=== PATIENT | male | born 1955 | race Caucasian/White ===

== ENCOUNTER 2021-12-13 09:23 | Inpatient (IN) | payer OTHER ==
[~2021-12-13] VITALS: Ht 195.6 cm; Wt 101.0 kg
[~2021-12-13 09:23] MED LIST: BACT800T5 PO; CLOP75TA2 PO; DULCOLAX; HYDR1CRE TOP; PERC5TAB8; PRED20TA PO; TRIA1CR80 TOP
[2021-12-13] MEDS ORDERED: DOXEPIN 25 MG CAP PO ONE (10:50)
[2021-12-13 11:18] LABS: BASO # 0.1 10^3/uL (0.0-0.2); BASO % 0.9 % (0.0-1.0); EOS # 0.3 10^3/uL (0.0-0.5); EOS % 2.1 % (0.0-3.0); HEMATOCRIT 47.4 % (42.0-52.0); LYMPH # 2.3 10^3/uL (1.5-5.0); LYMPH % 16.1 % (24.0-44.0); MEAN CORPUSCULAR HEMOGLOBIN 29.9 pg (27.0-33.0); MEAN CORPUSCULAR HGB CONC 33.8 g/dl (32.0-36.5); MEAN CORPUSCULAR VOLUME 88.4 fl (80.0-96.0); MONO # 1.2 10^3/uL (0.0-0.8); MONO % 8.3 % (2.0-8.0); NEUTROPHILS # 10.1 10^3/uL (1.5-8.5); NEUTROPHILS % 72.1 % (36.0-66.0); PLATELET COUNT, AUTOMATED 378 10^3/uL (150-450); RED BLOOD COUNT 5.36 10^6/uL (4.30-6.10); WHITE BLOOD COUNT 14.1 10^3/uL (4.0-10.0)
[2021-12-13 11:46] LABS: ALBUMIN 3.5 GM/DL (3.2-5.2); ALT/SGPT 21 U/L (12-78); BILIRUBIN,DIRECT 0.1 MG/DL (0.0-0.2); BILIRUBIN,TOTAL 0.4 MG/DL (0.2-1.0); BLOOD UREA NITROGEN 14 MG/DL (7-18); C REACTIVE PROTEIN QUANTITATIV 2.08 MG/DL (0.00-0.30); CALCIUM LEVEL 9.3 MG/DL (8.8-10.2); CARBON DIOXIDE LEVEL 27 MEQ/L (21-32); CHLORIDE LEVEL 108 MEQ/L (98-107); GLOMERULAR FILTRATION RATE > 60.0 (>49); GLUCOSE, FASTING 118 MG/DL (70-100); POTASSIUM SERUM 4.4 MEQ/L (3.5-5.1); SODIUM LEVEL 138 MEQ/L (136-145); TOTAL PROTEIN 7.5 GM/DL (6.4-8.2)
[2021-12-13 11:53] LABS: ERYTHROCYTE SEDIMENTATION RATE 37 mm/hr (0-20)
[2021-12-13 12:07] LABS: RSV AMPLIFICATION NEGATIVE (NEGATIVE)
[2021-12-13] MEDS ORDERED: MAALOX 30 ML SUSP *UDC PO PRN (13:20)
[2021-12-13] MEDS ORDERED: MOM 30ML SUSPENSION UDC PO PRN (13:20)
[2021-12-13] MEDS ORDERED: ACETAMINOPHEN TAB 650MG DOSE (2X325MG) PO PRN (13:20)
[2021-12-13] MEDS: PIPERACILLIN/TAZOBACTAM SOD 3.375 GM in D5W MINI-BAG PLUS 50 ML IV SCH ×2 (14:09→21:06)
[2021-12-13] MEDS ORDERED: VANCOMYCIN HCL 1,000 MG, VIAL MATE ADAPTER 1 EACH in NS 250 ML IV ONE ×2 (15:00→16:00)
[2021-12-13] MEDS ORDERED: diphenhydrAMINE CREAM 30GM TOP PRN (15:55)
[2021-12-13] MEDS ORDERED: HOME MED LIST COMPLETE! XX SCH (16:00)
[2021-12-13 20:28] VITALS: BP 146/78
[2021-12-13] MEDS ORDERED: CARVedilol 6.25 MG TAB PO SCH (21:00)
[2021-12-13] MEDS: DOCUSATE SODIUM 100MG CAPSULE PO SCH (21:06)
[2021-12-14] VITALS (8 sets, daily range): BP systolic 104–129; BP diastolic 53–72
[2021-12-14] MEDS: PIPERACILLIN/TAZOBACTAM SOD 3.375 GM in D5W MINI-BAG PLUS 50 ML IV SCH ×3 (02:00→08:17)
[2021-12-14] MEDS ORDERED: VANCOMYCIN HCL 1,000 MG, VIAL MATE ADAPTER 1 EACH in NS 250 ML IV SCH (02:00)
[2021-12-14 07:01] LABS: BASO # 0.1 10^3/uL (0.0-0.2); EOS # 0.5 10^3/uL (0.0-0.5); EOS % 4.3 % (0.0-3.0); HEMATOCRIT 42.5 % (42.0-52.0); HEMOGLOBIN 14.4 g/dl (13.5-17.5); LYMPH # 2.2 10^3/uL (1.5-5.0); LYMPH % 20.6 % (24.0-44.0); MEAN CORPUSCULAR HEMOGLOBIN 29.9 pg (27.0-33.0); MEAN CORPUSCULAR HGB CONC 33.9 g/dl (32.0-36.5); MEAN CORPUSCULAR VOLUME 88.2 fl (80.0-96.0); MONO # 1.1 10^3/uL (0.0-0.8); MONO % 10.5 % (2.0-8.0); NEUTROPHILS # 6.7 10^3/uL (1.5-8.5); NEUTROPHILS % 63.4 % (36.0-66.0); PLATELET COUNT, AUTOMATED 333 10^3/uL (150-450); RED BLOOD COUNT 4.82 10^6/uL (4.30-6.10); WHITE BLOOD COUNT 10.5 10^3/uL (4.0-10.0)
[2021-12-14 07:44] LABS: ALBUMIN 2.9 GM/DL (3.2-5.2); ALT/SGPT 17 U/L (12-78); BILIRUBIN,TOTAL 0.6 MG/DL (0.2-1.0); BLOOD UREA NITROGEN 13 MG/DL (7-18); CALCIUM LEVEL 9.5 MG/DL (8.8-10.2); CARBON DIOXIDE LEVEL 28 MEQ/L (21-32); CHLORIDE LEVEL 109 MEQ/L (98-107); CREATININE FOR GFR 1.02 MG/DL (0.70-1.30); GLOMERULAR FILTRATION RATE > 60.0 (>49); GLUCOSE, FASTING 144 MG/DL (70-100); MAGNESIUM LEVEL 2.3 MG/DL (1.8-2.4); POTASSIUM SERUM 4.8 MEQ/L (3.5-5.1); SODIUM LEVEL 142 MEQ/L (136-145); TOTAL PROTEIN 6.5 GM/DL (6.4-8.2)
[2021-12-14] MEDS: ENOXAPARIN 40MG/0.4ML SYRINGE (J1650 PER 10MG) SC SCH (08:17)
[2021-12-14] MEDS: CLOPIDOGREL 75 MG TAB PO SCH (08:18)
[2021-12-14] MEDS: DOCUSATE SODIUM 100MG CAPSULE PO SCH ×2 (08:18→20:20)
[2021-12-14] MEDS ORDERED: CARVedilol 3.125 MG TAB PO SCH (09:00)
[2021-12-14] MEDS: AUGMENTIN 875 MG TAB PO SCH ×2 (12:04→20:20)
[2021-12-14] MEDS: DOXYCYCLINE HYCLATE 100MG TABLET PO SCH ×2 (12:04→20:20)
[2021-12-14] MEDS ORDERED: NICOTINE 14 MG/24 HR TRANSDERMAL TD PRN (18:30)
[2021-12-14] MEDS: diphenhydrAMINE 25MG CAP PO PRN (20:20)
[2021-12-15] MEDS: diphenhydrAMINE 25MG CAP PO PRN (04:11)
[2021-12-15 06:00] VITALS: BP 114/69
[2021-12-15 06:33] LABS: BASO # 0.1 10^3/uL (0.0-0.2); BASO % 1.8 % (0.0-1.0); EOS # 0.5 10^3/uL (0.0-0.5); EOS % 6.8 % (0.0-3.0); HEMATOCRIT 43.6 % (42.0-52.0); HEMOGLOBIN 14.4 g/dl (13.5-17.5); LYMPH # 2.4 10^3/uL (1.5-5.0); LYMPH % 34.1 % (24.0-44.0); MEAN CORPUSCULAR HEMOGLOBIN 29.4 pg (27.0-33.0); MONO # 0.9 10^3/uL (0.0-0.8); MONO % 12.4 % (2.0-8.0); NEUTROPHILS # 3.1 10^3/uL (1.5-8.5); NEUTROPHILS % 44.6 % (36.0-66.0); PLATELET COUNT, AUTOMATED 344 10^3/uL (150-450)
[2021-12-15 07:03] LABS: ALBUMIN 2.8 GM/DL (3.2-5.2); ALT/SGPT 16 U/L (12-78); BILIRUBIN,TOTAL 0.3 MG/DL (0.2-1.0); BLOOD UREA NITROGEN 14 MG/DL (7-18); C REACTIVE PROTEIN QUANTITATIV 2.43 MG/DL (0.00-0.30); CALCIUM LEVEL 8.8 MG/DL (8.8-10.2); CARBON DIOXIDE LEVEL 26 MEQ/L (21-32); CHLORIDE LEVEL 109 MEQ/L (98-107); CREATININE FOR GFR 0.94 MG/DL (0.70-1.30); GLOMERULAR FILTRATION RATE > 60.0 (>49); GLUCOSE, FASTING 127 MG/DL (70-100); MAGNESIUM LEVEL 2.1 MG/DL (1.8-2.4); POTASSIUM SERUM 4.1 MEQ/L (3.5-5.1); SODIUM LEVEL 140 MEQ/L (136-145); TOTAL PROTEIN 6.9 GM/DL (6.4-8.2)
[2021-12-15 08:00] VITALS: BP 122/69
[2021-12-15] MEDS: DOXYCYCLINE HYCLATE 100MG TABLET PO SCH (08:09)
[2021-12-15] MEDS: AUGMENTIN 875 MG TAB PO SCH (08:09)
[2021-12-15] MEDS: CLOPIDOGREL 75 MG TAB PO SCH (08:09)
[2021-12-15] MEDS: DOCUSATE SODIUM 100MG CAPSULE PO SCH (08:10)
[2021-12-15] MEDS ORDERED: OMEPRAZOLE 20MG CAP PO SCH (09:00)
[2021-12-15] MEDS: ENOXAPARIN 40MG/0.4ML SYRINGE (J1650 PER 10MG) SC SCH (09:31)
[2021-12-15] MEDS ORDERED: CLOP75TA2 PO (09:35)
[2021-12-15] MEDS ORDERED: AMOX875T2 PO (09:38)
[2021-12-15] MEDS ORDERED: DOXY-350 PO (09:38)
[2021-12-15 19:08] LABS: ANA (HEP2) Negative (.)
== END 2021-12-15 11:45 | disposition home or self-care (01) | DRG 756 ==
LOC: M ED 09:23 → M ED INP 13:16 → M PCU 20:30 → M MS5PR 12-14 13:53
PROVIDERS: ADMIT Internal Medicine; ATTEND Internal Medicine
DX: R45.851 Suicidal ideations (principal); I10 Essential (primary) hypertension; I73.9 Peripheral vascular disease, unspecified; Z98.62 Peripheral vascular angioplasty status; Z90.49 Acquired absence of other specified parts of digestive tract; Z62.810 Personal history of physical and sexual abuse in childhood; F43.9 Reaction to severe stress, unspecified; F43.10 Post-traumatic stress disorder, unspecified; F42.4 Excoriation (skin-picking) disorder

== ENCOUNTER → 2022-07-03 | Outpatient (REF) | payer OTHER, MEDICAID ==
[~2022-07-03] MED LIST changes: +AMOX875T2 PO; +DOXY-444 PO
[2022-07-03 12:37] LABS: ALBUMIN 3.9 G/DL (3.2-5.2); ALKALINE PHOSPHATASE 76 U/L (46-116); ALT/SGPT 17 U/L (7.0-40); AST/SGOT 15 U/L (<34); BILIRUBIN,TOTAL 0.5 MG/DL (0.3-1.2); BLOOD UREA NITROGEN 16 MG/DL (9-23); CALCIUM LEVEL 9.6 MG/DL (8.3-10.6); CARBON DIOXIDE LEVEL 27 MMOL/L (20-31); CHLORIDE LEVEL 104 MMOL/L (98-107); CHOLESTEROL LEVEL 131 MG/DL (<200); CHOLESTEROL RISK RATIO 4.98 (<5); CREATININE FOR GFR 0.93 MG/DL (0.70-1.30); GLOMERULAR FILTRATION RATE > 60.0 (>49); GLUCOSE, FASTING 106 MG/DL (74-106); HDL CHOLESTEROL 26.3 MG/DL (>40); LDL CHOLESTEROL 78.1 MG/DL (<100); NON-HDL-C 105 MG/DL; POTASSIUM SERUM 5.2 MMOL/L (3.5-5.1); SODIUM LEVEL 138 MMOL/L (136-145); TOTAL PROTEIN 7.3 G/DL (5.7-8.2); TRIGLYCERIDES LEVEL 133 MG/DL (<150)
[2022-07-03 13:25] LABS: HEMOGLOBIN A1c 6.1 % (4.0-6.0)
== END ==
LOC: M LAB REF 11:24
PROVIDERS: ATTEND Nurse Practitioner Family
DX: R73.03 Prediabetes (principal); Z13.220 Encounter for screening for lipoid disorders

== ENCOUNTER → 2022-11-12 | Outpatient (REF) | payer OTHER, MEDICAID, MEDICARE ==
[2022-11-12 11:28] LABS: ALBUMIN 3.9 G/DL (3.2-5.2); ALKALINE PHOSPHATASE 72 U/L (46-116); ALT/SGPT 26 U/L (7.0-40); AST/SGOT 17 U/L (<34); BILIRUBIN,TOTAL 0.6 MG/DL (0.3-1.2); BLOOD UREA NITROGEN 19 MG/DL (9-23); CALCIUM LEVEL 9.2 MG/DL (8.3-10.6); CARBON DIOXIDE LEVEL 27 MMOL/L (20-31); CHLORIDE LEVEL 105 MMOL/L (98-107); CHOLESTEROL LEVEL 146 MG/DL (<200); CHOLESTEROL RISK RATIO 6.03 (<5); CREATININE FOR GFR 1.08 MG/DL (0.70-1.30); GLOMERULAR FILTRATION RATE > 60.0 (>49); GLUCOSE, FASTING 128 MG/DL (74-106); HDL CHOLESTEROL 24.2 MG/DL (>40); LDL CHOLESTEROL 86.4 MG/DL (<100); NON-HDL-C 121.8 MG/DL; POTASSIUM SERUM 4.8 MMOL/L (3.5-5.1); SODIUM LEVEL 137 MMOL/L (136-145); TOTAL PROTEIN 7.5 G/DL (5.7-8.2); TRIGLYCERIDES LEVEL 177 MG/DL (<150)
[2022-11-12 11:42] LABS: HEMOGLOBIN A1c 6.8 % (4.0-6.0)
== END ==
LOC: M LAB REF 10:27
PROVIDERS: ATTEND Nurse Practitioner Family
DX: R73.03 Prediabetes (principal); R79.89 Other specified abnormal findings of blood chemistry

== ENCOUNTER → 2023-03-27 | Outpatient (REF) | payer MEDICARE, MEDICAID | LOC: M SFHCDERM 16:04 | PROVIDERS: ATTEND Physician Assistant | DX: T07.XXXA Unspecified multiple injuries, initial encounter (principal); R21 Rash and other nonspecific skin eruption ==

== ENCOUNTER 2023-10-30 20:45 | Inpatient (IN) | payer OTHER, MEDICAID ==
[~2023-10-30] VITALS: Ht 195.6 cm; Wt 103.6 kg
[~2023-10-30 20:45] MED LIST changes: +DOXY-440 PO; -DOXY-444 PO
[2023-10-30] MEDS ORDERED: CEPH500C PO (20:54)
[2023-10-30] MEDS ORDERED: METF500T13 PO (20:54)
[2023-10-30 21:45] LABS: BASO # 0.1 10^3/uL (0.0-0.2); BASO % 0.8 % (0.0-1.0); HEMATOCRIT 51.1 % (42.0-52.0); HEMOGLOBIN 17.2 g/dl (13.5-17.5); LYMPH % 8.6 % (24.0-44.0); MEAN CORPUSCULAR HEMOGLOBIN 28.7 pg (27.0-33.0); MEAN CORPUSCULAR HGB CONC 33.7 g/dl (32.0-36.5); MEAN CORPUSCULAR VOLUME 85.2 fl (80.0-96.0); MONO % 8.6 % (2.0-8.0); NEUTROPHILS # 9.2 10^3/uL (1.5-8.5); NEUTROPHILS % 81.6 % (36.0-66.0); PLATELET COUNT, AUTOMATED 221 10^3/uL (150-450); WHITE BLOOD COUNT 11.3 10^3/uL (4.0-10.0)
[2023-10-30 22:00] LABS: INR 1.06; PARTIAL THROMBOPLASTIN TIME 28.4 SECONDS (24.8-34.2); PROTHROMBIN TIME 13.5 SECONDS (12.5-14.5)
[2023-10-30 22:07] LABS: ALBUMIN 2.7 G/DL (3.2-5.2); ALKALINE PHOSPHATASE 96 U/L (46-116); ALT/SGPT 16 U/L (7.0-40); AST/SGOT 17 U/L (<34); BILIRUBIN,DIRECT 0.3 MG/DL (<0.4); BILIRUBIN,TOTAL 0.8 MG/DL (0.3-1.2); BLOOD UREA NITROGEN 21 MG/DL (9-23); CALCIUM LEVEL 8.4 MG/DL (8.3-10.6); CARBON DIOXIDE LEVEL 22 MMOL/L (20-31); CHLORIDE LEVEL 100 MMOL/L (98-107); CREATININE FOR GFR 1.01 MG/DL (0.70-1.30); GLOMERULAR FILTRATION RATE > 60.0 (>49); GLUCOSE, FASTING 339 MG/DL (74-106); POTASSIUM SERUM 4.7 MMOL/L (3.5-5.1); SODIUM LEVEL 131 MMOL/L (136-145)
[2023-10-30] MEDS: NS 1,000 ML IV ONE ×3 (22:40→23:07)
[2023-10-30] MEDS: cefTRIAXone SOD 1 GM in D5W MINI-BAG PLUS 50 ML IV ONE (23:07)
[2023-10-30] MEDS ORDERED: HOME MED LIST COMPLETE! XX SCH (23:35)
[2023-10-31] VITALS (9 sets, daily range): BP systolic 100–143; BP diastolic 58–73; TEMP 97.1–102.5; O2SAT 91–97
[2023-10-31] MEDS ORDERED: GLUCAGON INJ 1MG VIAL SC PRN (01:00)
[2023-10-31] MEDS ORDERED: ALBUTEROL SULFATE 2.5MG/0.5ML INH NEB SOLN NEB PRN (01:00)
[2023-10-31] MEDS ORDERED: GLUCOSE 4 GM CHEW PO PRN (01:00)
[2023-10-31] MEDS ORDERED: DEXTROSE 50% 50ML SYRINGE IV PRN (01:00)
[2023-10-31] MEDS: IPRATROPIUM 0.5MG/ALBUTEROL 2.5MG INH SOL UD 3ML (DUONEB) NEB SCH (02:00)
[2023-10-31] MEDS: HumuLIN R (REGULAR) INSULIN (NovoLIN R) **100U/ML** PER UNIT IV STA (02:33)
[2023-10-31] MEDS: LR 1,000 ML IV SCH (02:33)
[2023-10-31] MEDS: LEVEMIR (INSULIN DETEMIR) 1 UNITS/0.01ML SC SCH ×3 (02:33→20:27)
[2023-10-31] MEDS: HEPARIN SOD (PORCINE) 5000UNITS/ML 1ML VIAL/SYRINGE SC SCH (05:54)
[2023-10-31 07:21] LABS: BLOOD UREA NITROGEN 19 MG/DL (9-23); CARBON DIOXIDE LEVEL 23 MMOL/L (20-31); CHLORIDE LEVEL 103 MMOL/L (98-107); CREATININE FOR GFR 0.86 MG/DL (0.70-1.30); GLOMERULAR FILTRATION RATE > 60.0 (>49); GLUCOSE, FASTING 247 MG/DL (74-106); POTASSIUM SERUM 4.4 MMOL/L (3.5-5.1); SODIUM LEVEL 132 MMOL/L (136-145)
[2023-10-31 07:50] LABS: BASO # 0.1 10^3/uL (0.0-0.2); BASO % 0.8 % (0.0-1.0); EOS # 0.1 10^3/uL (0.0-0.5); EOS % 0.6 % (0.0-3.0); HEMATOCRIT 44.6 % (42.0-52.0); LYMPH # 1.4 10^3/uL (1.5-5.0); LYMPH % 16.2 % (24.0-44.0); MEAN CORPUSCULAR HEMOGLOBIN 29.1 pg (27.0-33.0); MEAN CORPUSCULAR HGB CONC 33.6 g/dl (32.0-36.5); MEAN CORPUSCULAR VOLUME 86.4 fl (80.0-96.0); MONO % 11.1 % (2.0-8.0); NEUTROPHILS # 6.3 10^3/uL (1.5-8.5); PLATELET COUNT, AUTOMATED 209 10^3/uL (150-450); RED BLOOD COUNT 5.16 10^6/uL (4.30-6.10); WHITE BLOOD COUNT 8.8 10^3/uL (4.0-10.0)
[2023-10-31] MEDS: INSULIN LISPRO (NovoLOG) PER UNIT SC SCH ×2 (08:43→20:11)
[2023-10-31] MEDS: TAMSULOSIN 0.4 MG CAP PO SCH (12:58)
[2023-10-31] MEDS: ACETAMINOPHEN TAB 650MG DOSE (2X325MG) PO PRN (15:53)
[2023-10-31] MEDS ORDERED: VANCOMYCIN HCL 1,000 MG, VIAL MATE ADAPTER 1 EACH in D5W 250 ML IV SCH (17:00)
[2023-10-31] MEDS: VANCOMYCIN HCL 1,000 MG, VIAL MATE ADAPTER 1 EACH in D5W 250 ML IV ONE ×2 (17:33→18:38)
[2023-10-31] MEDS: NICOTINE 21MG/24HR 1 EA TRANSDERMAL TD SCH (20:27)
[2023-10-31] MEDS: ENOXAPARIN 40MG/0.4ML SYRINGE (J1650 PER 10MG) SC SCH (20:28)
[2023-10-31] MEDS: cefTRIAXone SOD 1 GM in D5W MINI-BAG PLUS 50 ML IV SCH (23:11)
[2023-11-01] VITALS (8 sets, daily range): BP systolic 125–146; BP diastolic 63–71; TEMP 99.8–101.5; O2SAT 91–96
[2023-11-01] MEDS: VANCOMYCIN HCL 750 MG, VIAL MATE ADAPTER 1 EACH in D5W 250 ML IV SCH ×3 (02:07→15:57)
[2023-11-01] MEDS: VANCOMYCIN HCL 500 MG in D5W MINI-BAG PLUS 100 ML IV SCH (02:07)
[2023-11-01 06:40] LABS: HEMATOCRIT 42.6 % (42.0-52.0); HEMOGLOBIN 14.5 g/dl (13.5-17.5); MEAN CORPUSCULAR HEMOGLOBIN 28.9 pg (27.0-33.0); MEAN CORPUSCULAR VOLUME 84.9 fl (80.0-96.0); PLATELET COUNT, AUTOMATED 188 10^3/uL (150-450); RED BLOOD COUNT 5.02 10^6/uL (4.30-6.10); WHITE BLOOD COUNT 8.9 10^3/uL (4.0-10.0)
[2023-11-01 07:05] LABS: ALBUMIN 2.2 G/DL (3.2-5.2); ALKALINE PHOSPHATASE 104 U/L (46-116); ALT/SGPT 33 U/L (7.0-40); AST/SGOT 38 U/L (<34); BILIRUBIN,TOTAL 0.7 MG/DL (0.3-1.2); BLOOD UREA NITROGEN 13 MG/DL (9-23); CARBON DIOXIDE LEVEL 26 MMOL/L (20-31); CHLORIDE LEVEL 100 MMOL/L (98-107); CREATININE FOR GFR 0.79 MG/DL (0.70-1.30); GLOMERULAR FILTRATION RATE > 60.0 (>49); GLUCOSE, FASTING 235 MG/DL (74-106); POTASSIUM SERUM 3.9 MMOL/L (3.5-5.1); SODIUM LEVEL 131 MMOL/L (136-145); TOTAL PROTEIN 5.7 G/DL (5.7-8.2)
[2023-11-01] MEDS: LEVEMIR (INSULIN DETEMIR) 1 UNITS/0.01ML SC SCH (08:17)
[2023-11-01] MEDS ORDERED: LEVEMIR (INSULIN DETEMIR) 1 UNITS/0.01ML SC SCH (09:00)
[2023-11-01] MEDS ORDERED: cefTRIAXone SOD 2 GM in D5W MINI-BAG PLUS 50 ML IV SCH (23:00)
[2023-11-01] MEDS: cefTRIAXone SOD 2 GM in D5W MINI-BAG PLUS 50 ML IV SCH (23:31)
[2023-11-02] VITALS (8 sets, daily range): BP systolic 118–156; BP diastolic 57–79; TEMP 100–101.6; O2SAT 90–96
[2023-11-02 04:55] LABS: HEMATOCRIT 40.2 % (42.0-52.0); HEMOGLOBIN 13.8 g/dl (13.5-17.5); MEAN CORPUSCULAR HEMOGLOBIN 29.1 pg (27.0-33.0); MEAN CORPUSCULAR HGB CONC 34.3 g/dl (32.0-36.5); MEAN CORPUSCULAR VOLUME 84.8 fl (80.0-96.0); PLATELET COUNT, AUTOMATED 201 10^3/uL (150-450); RED BLOOD COUNT 4.74 10^6/uL (4.30-6.10); WHITE BLOOD COUNT 7.4 10^3/uL (4.0-10.0)
[2023-11-02 05:24] LABS: ALBUMIN 2.1 G/DL (3.2-5.2); ALKALINE PHOSPHATASE 146 U/L (46-116); ALT/SGPT 48 U/L (7.0-40); AST/SGOT 46 U/L (<34); BILIRUBIN,TOTAL 0.6 MG/DL (0.3-1.2); BLOOD UREA NITROGEN 12 MG/DL (9-23); CALCIUM LEVEL 8.1 MG/DL (8.3-10.6); CARBON DIOXIDE LEVEL 26 MMOL/L (20-31); CHLORIDE LEVEL 102 MMOL/L (98-107); CREATININE FOR GFR 0.78 MG/DL (0.70-1.30); GLOMERULAR FILTRATION RATE > 60.0 (>49); GLUCOSE, FASTING 280 MG/DL (74-106); POTASSIUM SERUM 3.7 MMOL/L (3.5-5.1); SODIUM LEVEL 134 MMOL/L (136-145); TOTAL PROTEIN 5.8 G/DL (5.7-8.2)
[2023-11-02] MEDS: LEVEMIR (INSULIN DETEMIR) 1 UNITS/0.01ML SC SCH (09:05)
[2023-11-02] MEDS: VANCOMYCIN HCL 1,000 MG, VIAL MATE ADAPTER 1 EACH in D5W 250 ML IV SCH (14:23)
[2023-11-02] MEDS: ONDANSETRON 4MG 2ML VIAL IV PRN (21:50)
[2023-11-03 03:39] VITALS: BP 134/67; TEMP 99.6; O2SAT 93
[2023-11-03 05:48] LABS: HEMATOCRIT 39.3 % (42.0-52.0); HEMOGLOBIN 13.3 g/dl (13.5-17.5); MEAN CORPUSCULAR HEMOGLOBIN 28.5 pg (27.0-33.0); MEAN CORPUSCULAR HGB CONC 33.8 g/dl (32.0-36.5); MEAN CORPUSCULAR VOLUME 84.3 fl (80.0-96.0); PLATELET COUNT, AUTOMATED 204 10^3/uL (150-450); RED BLOOD COUNT 4.66 10^6/uL (4.30-6.10); WHITE BLOOD COUNT 7.4 10^3/uL (4.0-10.0)
[2023-11-03 06:21] LABS: ALKALINE PHOSPHATASE 149 U/L (46-116); ALT/SGPT 53 U/L (7.0-40); AST/SGOT 44 U/L (<34); BILIRUBIN,TOTAL 0.8 MG/DL (0.3-1.2); BLOOD UREA NITROGEN 11 MG/DL (9-23); CALCIUM LEVEL 7.7 MG/DL (8.3-10.6); CARBON DIOXIDE LEVEL 26 MMOL/L (20-31); CHLORIDE LEVEL 102 MMOL/L (98-107); CREATININE FOR GFR 0.75 MG/DL (0.70-1.30); GLOMERULAR FILTRATION RATE > 60.0 (>49); GLUCOSE, FASTING 218 MG/DL (74-106); POTASSIUM SERUM 3.7 MMOL/L (3.5-5.1); SODIUM LEVEL 135 MMOL/L (136-145); TOTAL PROTEIN 5.6 G/DL (5.7-8.2)
[2023-11-03 07:36] VITALS: BP 134/72; TEMP 98.8; O2SAT 89
[2023-11-03] MEDS: LEVEMIR (INSULIN DETEMIR) 1 UNITS/0.01ML SC SCH (08:48)
[2023-11-03 11:42] VITALS: BP 148/74; TEMP 99.5; O2SAT 91
[2023-11-03 16:36] VITALS: BP 133/77; TEMP 98.8; O2SAT 96
[2023-11-03 19:43] VITALS: BP 142/66; TEMP 97.3; O2SAT 92
[2023-11-03 23:42] VITALS: BP 133/72; TEMP 97.9; O2SAT 96
[2023-11-04] MEDS ORDERED: SODIUM CHLORIDE NASAL 0.65% SPRAY BTL (OCEAN) PRN (02:05)
[2023-11-04 03:53] VITALS: BP 124/72; TEMP 97.9; O2SAT 92
[2023-11-04 06:37] LABS: HEMATOCRIT 41.6 % (42.0-52.0); HEMOGLOBIN 14.2 g/dl (13.5-17.5); MEAN CORPUSCULAR HEMOGLOBIN 29.2 pg (27.0-33.0); MEAN CORPUSCULAR HGB CONC 34.1 g/dl (32.0-36.5); MEAN CORPUSCULAR VOLUME 85.6 fl (80.0-96.0); PLATELET COUNT, AUTOMATED 284 10^3/uL (150-450); RED BLOOD COUNT 4.86 10^6/uL (4.30-6.10)
[2023-11-04 07:11] LABS: ALBUMIN 2.3 G/DL (3.2-5.2); ALKALINE PHOSPHATASE 157 U/L (46-116); ALT/SGPT 73 U/L (7.0-40); AST/SGOT 62 U/L (<34); BILIRUBIN,TOTAL 0.6 MG/DL (0.3-1.2); BLOOD UREA NITROGEN 9 MG/DL (9-23); CALCIUM LEVEL 8.7 MG/DL (8.3-10.6); CARBON DIOXIDE LEVEL 28 MMOL/L (20-31); CHLORIDE LEVEL 105 MMOL/L (98-107); CREATININE FOR GFR 0.75 MG/DL (0.70-1.30); GLOMERULAR FILTRATION RATE > 60.0 (>49); GLUCOSE, FASTING 119 MG/DL (74-106); SODIUM LEVEL 140 MMOL/L (136-145); TOTAL PROTEIN 6.3 G/DL (5.7-8.2)
[2023-11-04 07:37] VITALS: BP 155/72; TEMP 98.9; O2SAT 91
[2023-11-04 12:02] VITALS: BP 142/83; TEMP 97; O2SAT 93
[2023-11-04 16:00] VITALS: BP 153/79; TEMP 96.8; O2SAT 94
[2023-11-04] MEDS ORDERED: LIDOCAINE 2% 100MG/5ML SDV (FOR ANES.) As Ordered ONE (17:10)
[2023-11-04] MEDS ORDERED: propofoL 200 MG/20 ML VIAL As Ordered ONE (17:10)
[2023-11-04] MEDS: CETACAINE SPRAY 5GM As Ordered ONE (17:30)
[2023-11-04 18:38] VITALS: BP 167/73; O2SAT 93
[2023-11-04 20:30] VITALS: BP 148/73; TEMP 97.1; O2SAT 94
[2023-11-05 02:41] VITALS: BP 127/59; TEMP 97.4; O2SAT 97
[2023-11-05 06:05] LABS: HEMATOCRIT 37.2 % (42.0-52.0); HEMOGLOBIN 12.6 g/dl (13.5-17.5); MEAN CORPUSCULAR HEMOGLOBIN 29.4 pg (27.0-33.0); MEAN CORPUSCULAR HGB CONC 33.9 g/dl (32.0-36.5); MEAN CORPUSCULAR VOLUME 86.9 fl (80.0-96.0); PLATELET COUNT, AUTOMATED 303 10^3/uL (150-450); RED BLOOD COUNT 4.28 10^6/uL (4.30-6.10); WHITE BLOOD COUNT 7.4 10^3/uL (4.0-10.0)
[2023-11-05 06:34] LABS: ALKALINE PHOSPHATASE 145 U/L (46-116); ALT/SGPT 62 U/L (7.0-40); AST/SGOT 59 U/L (<34); BILIRUBIN,TOTAL 0.4 MG/DL (0.3-1.2); BLOOD UREA NITROGEN 10 MG/DL (9-23); CALCIUM LEVEL 8.4 MG/DL (8.3-10.6); CARBON DIOXIDE LEVEL 27 MMOL/L (20-31); CHLORIDE LEVEL 106 MMOL/L (98-107); CREATININE FOR GFR 0.75 MG/DL (0.70-1.30); GLOMERULAR FILTRATION RATE > 60.0 (>49); GLUCOSE, FASTING 170 MG/DL (74-106); POTASSIUM SERUM 4.1 MMOL/L (3.5-5.1); SODIUM LEVEL 139 MMOL/L (136-145); TOTAL PROTEIN 5.6 G/DL (5.7-8.2)
[2023-11-05 07:24] VITALS: BP 153/73; TEMP 97.7; O2SAT 96
[2023-11-05 12:34] VITALS: BP 140/80; TEMP 97.3; O2SAT 96
[2023-11-05] MEDS: cefTRIAXone SOD 2 GM in D5W MINI-BAG PLUS 50 ML IV ONE (13:28)
[2023-11-05] MEDS ORDERED: FLOM0.4C39 PO (14:35)
[2023-11-05] MEDS ORDERED: SODIUM CHLORIDE 0.9% INJ 10 ML SYR IV PRN (16:25)
[2023-11-05] MEDS: SODIUM CHLORIDE 0.9% INJ 10 ML SYR IV SCH (16:25)
== END 2023-11-05 17:15 | disposition home or self-care (01) | DRG 720 ==
LOC: M ED 20:45 → M ED INP 10-31 00:16 → EEVIPCON 10-31 00:16 → M PCU 10-31 01:35
PROVIDERS: ADMIT Internal Medicine; ATTEND Student in an Organized Health Care Education/Training Program
PROC: B246ZZZ Ultrasonography of Right and Left Heart (ICD-10-PCS; principal; 2023-10-31)
PROC: B246ZZ4 Ultrasonography of Right and Left Heart, Transesophageal (ICD-10-PCS; 2023-11-04)
PROC: 05HC33Z Insertion of Infusion Device into Left Basilic Vein, Percutaneous Approach (ICD-10-PCS; 2023-11-05)
DX: A41.01 Sepsis due to Methicillin susceptible Staphylococcus aureus (principal); N10 Acute pyelonephritis; F17.203 Nicotine dependence unspecified, with withdrawal; E11.65 Type 2 diabetes mellitus with hyperglycemia; I36.1 Nonrheumatic tricuspid (valve) insufficiency; L98.9 Disorder of the skin and subcutaneous tissue, unspecified; R33.9 Retention of urine, unspecified; R45.1 Restlessness and agitation; R74.01 Elevation of levels of liver transaminase levels; I70.0 Atherosclerosis of aorta; Z79.84 Long term (current) use of oral hypoglycemic drugs

== ENCOUNTER 2023-11-06 15:31 | Outpatient (CLI) | payer MEDICARE, OTHER ==
[~2023-11-06] VITALS: Ht 195.6 cm; Wt 103.6 kg
[~2023-11-06 15:31] MED LIST changes: +CEPH500C PO; -DOXY-440 PO; +DOXY-444 PO; +FLOM0.4C39 PO; +METF500T13 PO
[2023-11-06] MEDS: cefTRIAXone SOD 2 GM in D5W MINI-BAG PLUS 50 ML IV ONE (15:47)
[2023-11-06 15:57] VITALS: BP 170/83; O2SAT 97
[2023-11-06 16:16] VITALS: BP 178/87; O2SAT 95
[2023-11-06] MEDS: SODIUM CHLORIDE 0.9% INJ 10 ML SYR IV SCH (16:16)
== END 2023-11-06 16:19 ==
LOC: M INFU 15:31
PROVIDERS: ATTEND Student in an Organized Health Care Education/Training Program
DX: A41.01 Sepsis due to Methicillin susceptible Staphylococcus aureus (principal)

== ENCOUNTER 2023-11-07 15:34 | Outpatient (CLI) | payer MEDICARE, OTHER ==
[~2023-11-07] VITALS: Ht 195.6 cm; Wt 103.6 kg
[2023-11-07 15:40] VITALS: BP_SYST 138; BP_SYST 165; BP_DIAS 72; BP_DIAS 79; O2SAT 20
[2023-11-07] MEDS: cefTRIAXone SOD 2 GM in D5W MINI-BAG PLUS 50 ML IV ONE (15:44)
[2023-11-07] MEDS: SODIUM CHLORIDE 0.9% INJ 10 ML SYR IV SCH (16:22)
[2023-11-07 16:29] VITALS: BP 140/74; O2SAT 99
== END 2023-11-07 16:30 ==
LOC: M INFU 15:34
PROVIDERS: ATTEND Student in an Organized Health Care Education/Training Program
DX: A41.01 Sepsis due to Methicillin susceptible Staphylococcus aureus (principal)
CPT/HCPCS: 96365; J0696

== ENCOUNTER 2023-11-08 09:16 | Outpatient (CLI) | payer MEDICARE, OTHER ==
[~2023-11-08] VITALS: Ht 195.6 cm; Wt 110.3 kg
[~2023-11-08 09:16] MED LIST changes: +DOXY-440 PO; -DOXY-444 PO
[2023-11-08] MEDS: cefTRIAXone SOD 2 GM in D5W MINI-BAG PLUS 50 ML IV ONE (10:02)
[2023-11-08 10:06] VITALS: BP 160/80; TEMP 97.9; O2SAT 94
[2023-11-08 10:49] VITALS: BP 144/78; TEMP 97.9; O2SAT 94
== END 2023-11-08 11:11 | disposition home or self-care (01) ==
LOC: M INFU 09:16 → M OPCLI3 09:16 → M MSPAV 09:19 → M OPCLI3 11:11
PROVIDERS: ATTEND Student in an Organized Health Care Education/Training Program
DX: A41.01 Sepsis due to Methicillin susceptible Staphylococcus aureus (principal)
CPT/HCPCS: 96365; J0696

== ENCOUNTER 2023-11-09 09:58 | Outpatient (CLI) | payer MEDICARE, OTHER ==
[~2023-11-09] VITALS: Ht 195.6 cm; Wt 118.0 kg
[2023-11-09 10:22] VITALS: BP 156/72; O2SAT 95
[2023-11-09] MEDS ORDERED: SODIUM CHLORIDE 0.9% INJ 10 ML SYR IV PRN (10:25)
[2023-11-09] MEDS: cefTRIAXone SOD 2 GM in D5W MINI-BAG PLUS 50 ML IV ONE (10:29)
[2023-11-09] MEDS: SODIUM CHLORIDE 0.9% INJ 10 ML SYR IV SCH (11:07)
== END 2023-11-09 11:22 | disposition home or self-care (01) ==
LOC: M INFU 09:58 → M MSPAV 10:04 → M INFU 11:22
PROVIDERS: ATTEND Student in an Organized Health Care Education/Training Program
DX: A41.01 Sepsis due to Methicillin susceptible Staphylococcus aureus (principal)
CPT/HCPCS: 96365; J0696

== ENCOUNTER 2023-11-10 15:49 | Outpatient (CLI) | payer MEDICARE, OTHER ==
[~2023-11-10] VITALS: Ht 188 cm; Wt 120.0 kg
[~2023-11-10 15:49] MED LIST changes: -DOXY-440 PO; +DOXY-444 PO
[2023-11-10 16:15] VITALS: BP 154/76; O2SAT 95
[2023-11-10] MEDS: SODIUM CHLORIDE 0.9% INJ 10 ML SYR IV PRN (16:22)
[2023-11-10] MEDS: cefTRIAXone SOD 2 GM in D5W MINI-BAG PLUS 50 ML IV ONE (16:22)
[2023-11-10 16:50] VITALS: BP 140/80; O2SAT 95
[2023-11-10] MEDS ORDERED: SODIUM CHLORIDE 0.9% INJ 10 ML SYR IV SCH (18:00)
== END 2023-11-10 16:50 ==
LOC: M INFU 15:49
PROVIDERS: ATTEND Student in an Organized Health Care Education/Training Program
DX: A41.01 Sepsis due to Methicillin susceptible Staphylococcus aureus (principal)
CPT/HCPCS: 96365; J0696

== ENCOUNTER 2023-11-11 16:00 | Outpatient (CLI) | payer MEDICARE, OTHER ==
[2023-11-10 16:15] VITALS: BP 154/76; O2SAT 99
[~2023-11-11] VITALS: Ht 188 cm; Wt 118.0 kg
[~2023-11-11 16:00] MED LIST changes: +SODIUM CHLORIDE 0.9% INJ 10 ML SYR IV SCH
[2023-11-11 16:05] VITALS: BP 161/83; O2SAT 96
[2023-11-11] MEDS: cefTRIAXone SOD 2 GM in D5W MINI-BAG PLUS 50 ML IV ONE (16:07)
[2023-11-11] MEDS: SODIUM CHLORIDE 0.9% INJ 10 ML SYR IV PRN (16:09)
[2023-11-11] MEDS ORDERED: cefTRIAXone SOD 2 GM in D5W MINI-BAG PLUS 50 ML IV ONE (16:30)
[2023-11-11 16:40] VITALS: BP 150/75; O2SAT 96
== END 2023-11-11 16:40 | disposition home or self-care (01) ==
LOC: M INFU 16:00
PROVIDERS: ATTEND Student in an Organized Health Care Education/Training Program
DX: A41.01 Sepsis due to Methicillin susceptible Staphylococcus aureus (principal)
CPT/HCPCS: 96365; J0696

== ENCOUNTER 2023-11-12 16:05 | Outpatient (CLI) | payer MEDICARE, OTHER ==
[~2023-11-12 16:05] MED LIST changes: +DOXY-440 PO; -DOXY-444 PO; -SODIUM CHLORIDE 0.9% INJ 10 ML SYR IV SCH
[2023-11-12] MEDS: cefTRIAXone SOD 2 GM in D5W MINI-BAG PLUS 50 ML IV ONE (16:33)
[2023-11-12 16:50] VITALS: BP 120/73; O2SAT 98
[2023-11-12 17:10] VITALS: BP 152/74; O2SAT 94
== END 2023-11-12 17:10 | disposition home or self-care (01) ==
LOC: M INFU 16:05
PROVIDERS: ATTEND Student in an Organized Health Care Education/Training Program
DX: A41.01 Sepsis due to Methicillin susceptible Staphylococcus aureus (principal)
CPT/HCPCS: 96365; J0696

== ENCOUNTER 2023-11-13 16:05 | Outpatient (CLI) | payer MEDICARE, OTHER ==
[2023-11-13 16:05] VITALS: BP 131/70; O2SAT 95
[2023-11-13] MEDS: cefTRIAXone SOD 2 GM in D5W MINI-BAG PLUS 50 ML IV ONE (16:07)
[2023-11-13] MEDS: SODIUM CHLORIDE 0.9% INJ 10 ML SYR IV SCH (16:40)
[2023-11-13 16:45] VITALS: BP 132/71; O2SAT 93
== END 2023-11-13 16:45 | disposition home or self-care (01) ==
LOC: M INFU 16:05
PROVIDERS: ATTEND Student in an Organized Health Care Education/Training Program
DX: A41.01 Sepsis due to Methicillin susceptible Staphylococcus aureus (principal)
CPT/HCPCS: 96365; J0696

== ENCOUNTER 2023-11-14 16:00 | Outpatient (CLI) | payer MEDICARE, OTHER ==
[~2023-11-14 16:00] MED LIST changes: +SODIUM CHLORIDE 0.9% INJ 10 ML SYR IV PRN; +SODIUM CHLORIDE 0.9% INJ 10 ML SYR IV SCH
[2023-11-14] MEDS: cefTRIAXone SOD 2 GM in D5W MINI-BAG PLUS 50 ML IV ONE (16:05)
[2023-11-14 16:09] VITALS: BP 133/76; O2SAT 94
[2023-11-14] MEDS ORDERED: cefTRIAXone SOD 2 GM in D5W MINI-BAG PLUS 50 ML IV SCH (16:30)
[2023-11-14 16:37] VITALS: BP 118/58; O2SAT 99
== END 2023-11-14 16:35 ==
LOC: M INFU 16:00
PROVIDERS: ATTEND Student in an Organized Health Care Education/Training Program
DX: A41.01 Sepsis due to Methicillin susceptible Staphylococcus aureus (principal)
CPT/HCPCS: 96365; J0696

== ENCOUNTER 2023-11-15 09:28 | Outpatient (CLI) | payer MEDICARE, OTHER ==
[~2023-11-15] VITALS: Ht 195.6 cm; Wt 110.0 kg
[~2023-11-15 09:28] MED LIST changes: -SODIUM CHLORIDE 0.9% INJ 10 ML SYR IV PRN; -SODIUM CHLORIDE 0.9% INJ 10 ML SYR IV SCH
[2023-11-15 10:06] VITALS: BP 150/70; O2SAT 95
[2023-11-15] MEDS: cefTRIAXone SOD 2 GM in D5W MINI-BAG PLUS 50 ML IV ONE (11:20)
[2023-11-15 12:00] VITALS: BP 155/83; O2SAT 97
== END 2023-11-15 12:14 | disposition home or self-care (01) ==
LOC: M OPCLI4PV 09:28 → M MSPAV 09:32 → M OPCLI4PV 12:14
PROVIDERS: ATTEND Student in an Organized Health Care Education/Training Program
DX: A41.01 Sepsis due to Methicillin susceptible Staphylococcus aureus (principal)
CPT/HCPCS: 96365; J0696

== ENCOUNTER 2023-11-16 09:20 | Outpatient (CLI) | payer MEDICARE, OTHER ==
[2023-11-16 09:45] VITALS: BP 136/78; TEMP 97.9; O2SAT 96
[2023-11-16] MEDS: cefTRIAXone SOD 2 GM in D5W MINI-BAG PLUS 50 ML IV ONE (09:51)
== END 2023-11-16 10:45 ==
LOC: M OPCLI5PR 09:20 → M MS5PR 09:34 → M OPCLI5PR 10:45
PROVIDERS: ATTEND Student in an Organized Health Care Education/Training Program
DX: A41.01 Sepsis due to Methicillin susceptible Staphylococcus aureus (principal)
CPT/HCPCS: 96365; J0696

== ENCOUNTER 2023-11-17 16:00 | Outpatient (CLI) | payer MEDICARE, OTHER ==
[2023-11-17] MEDS: cefTRIAXone SOD 2 GM in D5W MINI-BAG PLUS 50 ML IV SCH (16:07)
[2023-11-17 16:10] VITALS: BP 161/85; O2SAT 95
[2023-11-17 16:42] VITALS: BP 137/78; O2SAT 99
== END 2023-11-17 16:40 | disposition home or self-care (01) ==
LOC: M INFU 16:00
PROVIDERS: ATTEND Student in an Organized Health Care Education/Training Program
DX: A41.01 Sepsis due to Methicillin susceptible Staphylococcus aureus (principal)
CPT/HCPCS: 96365; J0696

== ENCOUNTER → 2023-11-20 | Outpatient (CLI) | payer MEDICARE, OTHER ==
[2023-11-20 15:56] LABS: BASO # 0.2 10^3/uL (0.0-0.2); BASO % 1.9 % (0.0-1.0); EOS # 0.2 10^3/uL (0.0-0.5); EOS % 2.3 % (0.0-3.0); HEMATOCRIT 48.5 % (42.0-52.0); HEMOGLOBIN 15.9 g/dl (13.5-17.5); LYMPH # 2.6 10^3/uL (1.5-5.0); LYMPH % 33.9 % (24.0-44.0); MEAN CORPUSCULAR HEMOGLOBIN 28.4 pg (27.0-33.0); MEAN CORPUSCULAR HGB CONC 32.8 g/dl (32.0-36.5); MEAN CORPUSCULAR VOLUME 86.8 fl (80.0-96.0); MONO # 0.7 10^3/uL (0.0-0.8); MONO % 9.3 % (2.0-8.0); NEUTROPHILS % 52.3 % (36.0-66.0); PLATELET COUNT, AUTOMATED 344 10^3/uL (150-450); RED BLOOD COUNT 5.59 10^6/uL (4.30-6.10); WHITE BLOOD COUNT 7.7 10^3/uL (4.0-10.0)
[2023-11-20 16:01] LABS: ERYTHROCYTE SEDIMENTATION RATE 93 mm/hr (0-20)
[2023-11-20 16:05] LABS: APPEARANCE, URINE CLEAR (CLEAR); BACTERIA, URINE AUTO NEGATIVE (NEGATIVE); BILIRUBIN, URINE AUTO NEGATIVE (NEGATIVE); BLOOD, URINE BLOOD 1+ (NEGATIVE); COLOR, URINE YELLOW (YELLOW); GLUCOSE, URINE (UA) AUTO NEGATIVE (NEGATIVE); KETONE, URINE AUTO NEGATIVE (NEGATIVE); LEUKOCYTE ESTERASE, URINE AUTO TRACE (NEGATIVE); MUCUS, URINE SMALL (NEGATIVE); NITRITE, URINE AUTO NEGATIVE (NEGATIVE); PROTEIN, URINE AUTO 1+ mg/dL (NEGATIVE); RBC, URINE AUTO 1 /HPF (0-3); SPECIFIC GRAVITY URINE AUTO 1.016 (1.002-1.035); SQUAMOUS EPITHELIAL CELL UR AU 0 /HPF (0-6); UROBILINOGEN, URINE AUTO 0.2 mg/dL (0.0-2.0); WBC, URINE AUTO 7 /HPF (0-3)
[2023-11-20 16:32] LABS: C REACTIVE PROTEIN QUANTITATIV < 0.40 MG/DL (<1.0)
[2023-11-20 16:33] LABS: ALBUMIN 3.4 G/DL (3.2-5.2); ALKALINE PHOSPHATASE 100 U/L (46-116); ALT/SGPT 26 U/L (7.0-40); AST/SGOT 14 U/L (<34); BILIRUBIN,TOTAL 0.3 MG/DL (0.3-1.2); BLOOD UREA NITROGEN 20 MG/DL (9-23); CALCIUM LEVEL 9.4 MG/DL (8.3-10.6); CARBON DIOXIDE LEVEL 24 MMOL/L (20-31); CHLORIDE LEVEL 107 MMOL/L (98-107); GLOMERULAR FILTRATION RATE > 60.0 (>49); GLUCOSE, FASTING 135 MG/DL (74-106); HEPATITIS B SURFACE ANTIBODY NEGATIVE (POSITIVE); POTASSIUM SERUM 4.6 MMOL/L (3.5-5.1); SODIUM LEVEL 137 MMOL/L (136-145); TOTAL PROTEIN 8.2 G/DL (5.7-8.2)
[2023-11-20 16:46] LABS: HEPATITIS B SURFACE ANTIGEN NEGATIVE (NEGATIVE)
[2023-11-20 16:58] LABS: HIV 1&2 SCREEN NEGATIVE (NEGATIVE)
[2023-11-20 17:04] LABS: HEPATITIS C VIRUS ABY INDEX < 0.02 INDEX (<0.8)
== END ==
LOC: M PLALAB 11:44
PROVIDERS: ATTEND Internal Medicine Infectious Disease
DX: N12 Tubulo-interstitial nephritis, not specified as acute or chronic (principal); A49.01 Methicillin susceptible Staphylococcus aureus infection, unspecified site; R74.01 Elevation of levels of liver transaminase levels; Z11.59 Encounter for screening for other viral diseases; Z72.89 Other problems related to lifestyle

== ENCOUNTER → 2023-11-24 | Outpatient (CLI) | payer MEDICARE, OTHER | LOC: M PLALAB 13:24 | PROVIDERS: ATTEND Internal Medicine Infectious Disease | DX: A49.01 Methicillin susceptible Staphylococcus aureus infection, unspecified site (principal) ==

== ENCOUNTER → 2024-03-08 | Outpatient (REF) | payer MEDICARE, OTHER ==
[2024-03-08 17:48] LABS: BASO # 0.1 10^3/uL (0.0-0.2); BASO % 1.2 % (0.0-1.0); EOS # 0.2 10^3/uL (0.0-0.5); EOS % 2.4 % (0.0-3.0); HEMATOCRIT 52.5 % (42.0-52.0); HEMOGLOBIN 17.7 g/dl (13.5-17.5); LYMPH # 2.8 10^3/uL (1.5-5.0); LYMPH % 32.7 % (24.0-44.0); MEAN CORPUSCULAR HEMOGLOBIN 29.4 pg (27.0-33.0); MEAN CORPUSCULAR HGB CONC 33.7 g/dl (32.0-36.5); MEAN CORPUSCULAR VOLUME 87.2 fl (80.0-96.0); MONO # 0.9 10^3/uL (0.0-0.8); MONO % 9.8 % (2.0-8.0); NEUTROPHILS # 4.6 10^3/uL (1.5-8.5); NEUTROPHILS % 53.7 % (36.0-66.0); PLATELET COUNT, AUTOMATED 257 10^3/uL (150-450); RED BLOOD COUNT 6.02 10^6/uL (4.30-6.10); WHITE BLOOD COUNT 8.6 10^3/uL (4.0-10.0)
[2024-03-08 18:19] LABS: ALKALINE PHOSPHATASE 87 U/L (46-116); ALT/SGPT 15 U/L (7.0-40); AST/SGOT 11 U/L (<34); BILIRUBIN,TOTAL 0.4 MG/DL (0.3-1.2); BLOOD UREA NITROGEN 23 MG/DL (9-23); CALCIUM LEVEL 9.5 MG/DL (8.3-10.6); CARBON DIOXIDE LEVEL 22 MMOL/L (20-31); CHLORIDE LEVEL 107 MMOL/L (98-107); CHOLESTEROL LEVEL 152 MG/DL (<200); CHOLESTEROL RISK RATIO 6.63 (<5); GLOMERULAR FILTRATION RATE > 60.0 (>49); GLUCOSE, FASTING 121 MG/DL (74-106); HDL CHOLESTEROL 22.9 MG/DL (>40); LDL CHOLESTEROL 69.7 MG/DL (<100); NON-HDL-C 129.1 MG/DL; POTASSIUM SERUM 4.9 MMOL/L (3.5-5.1); SODIUM LEVEL 137 MMOL/L (136-145); TRIGLYCERIDES LEVEL 297 MG/DL (<150)
[2024-03-08 18:21] LABS: THYROID STIMULATING HORMONE 2.449 uIU/ML (0.55-4.78)
[2024-03-08 19:06] LABS: HEMOGLOBIN A1c 7.1 % (4.0-6.0)
== END ==
LOC: M LAB REF 16:27
PROVIDERS: ATTEND Family Medicine Addiction Medicine
DX: E11.9 Type 2 diabetes mellitus without complications (principal)

== ENCOUNTER 2024-04-25 01:51 | Emergency (ER) | payer MEDICARE, OTHER ==
[~2024-04-25] VITALS: Ht 193 cm; Wt 103.0 kg
[2024-04-25] MEDS: IPRATROPIUM 0.5MG/ALBUTEROL 2.5MG INH SOL UD 3ML (DUONEB) NEB ONE (05:09)
[2024-04-25 05:35] VITALS: O2SAT 93
[2024-04-25 06:15] VITALS: BP 136/60; TEMP 98.9; O2SAT 93
[2024-04-25] MEDS: ALBUTEROL 90 MCG/ACT 8GM HFA INHALER INH ONE (06:38)
== END 2024-04-25 06:41 | disposition home or self-care (01) ==
LOC: M ED 01:51
DX: J21.8 Acute bronchiolitis due to other specified organisms (principal); E11.9 Type 2 diabetes mellitus without complications; I10 Essential (primary) hypertension; N40.0 Benign prostatic hyperplasia without lower urinary tract symptoms; F17.210 Nicotine dependence, cigarettes, uncomplicated; Z79.84 Long term (current) use of oral hypoglycemic drugs